=== PATIENT | male | born 2000 | race African-American/Black ===

== ENCOUNTER 2018-09-29 13:10 | Emergency (ER) | payer MEDICAID ==
[~2018-09-29] VITALS: Ht 188 cm; Wt 63.0 kg
[2018-09-29] MEDS ORDERED: PROP10TA10 PO (13:24)
[2018-09-29] MEDS ORDERED: SODIUM CHLORIDE 0.9% 1,000 ML IV ONE (14:21)
[2018-09-29] MEDS ORDERED: MECLIZINE 25MG TABLET PO ONE (14:30)
[2018-09-29 16:05] LABS: BASOPHILS % 1.2 % (0.0-2.0); EOSINOPHILS % 9.7 % (0.0-5.0); HEMATOCRIT. 46.5 % (42.0-52.0); HEMOGLOBIN. 15.4 g/dL (14.0-18.0); LYMPHOCYTES % 33.7 % (20.0-50.0); MEAN CORPUSCULAR HEMOGLOBIN 27.7 pg (28.0-32.0); MEAN CORPUSCULAR VOLUME 83.6 fL (80.0-94.0); MEAN PLATELET VOLUME 8.5 fl (7.4-10.4); MONOCYTES % 8.8 % (2.0-8.0); NEUTROPHILS % 46.6 % (40.0-76.0); PLATELET 276 x1000/uL (130-400); RED BLOOD CELL COUNT 5.56 mill/uL (4.7-6.1); RED CELL DISTRIBUTION WIDTH 13.9 % (11.6-14.6)
[2018-09-29 16:13] LABS: CHLORIDE 105 mEq/L (98-107)
[2018-09-29 16:33] LABS: CLARITY URINE CLEAR (CLEAR); COLOR URINE YELLOW (YELLOW); KETONES URINE NEGATIVE (NEGATIVE); LEUKOCYTE ESTERASE URINE NEGATIVE (NEGATIVE); NITRITE URINE NEGATIVE (NEGATIVE); OCCULT BLOOD URINE NEGATIVE (NEGATIVE); PH URINE 7.5 (4.5-8.0); PROTEIN URINE NEGATIVE (NEGATIVE); SPECIFIC GRAVITY URINE 1.023 (1.005-1.030)
[2018-09-29 17:20] VITALS: BP 119/65
== END 2018-09-29 17:41 | disposition home or self-care (01) ==
LOC: ER 13:10
DX: H81.13 Benign paroxysmal vertigo, bilateral (principal); J45.909 Unspecified asthma, uncomplicated
CPT/HCPCS: 36415; 80048; 81003; 85025; 93005; 96360; 96361; 99285; J7030; J8597